=== PATIENT | male | born 1975 ===

== ENCOUNTER 2018-01-28 09:34 | Inpatient (IN) | payer OTHER ==
[~2018-01-28] VITALS: Ht 182.9 cm; Wt 5.0 kg
[2018-01-31] MEDS ORDERED: CEFTRIAXON2 GM/50 M1 IV (15:36)
== END 2018-02-01 20:43 | disposition home or self-care (01) | DRG 373 ==
LOC: ER 09:34 → SEC-K 01-29 08:31 → MEDI 01-29 08:31 → MEDJ 01-31 20:28
PROC: 8E0ZXY6 Isolation (ICD-10-PCS; principal; 2018-01-31)
DX: A03.3 Shigellosis due to Shigella sonnei (principal)